=== PATIENT | male | born 1975 | race Caucasian/White ===

== ENCOUNTER → 2021-09-09 10:16 | Outpatient (REF) | payer MEDICAID, SELFPAY ==
--- NOTE | 2021-09-09 10:30 | CA_ITS ---
Transthoracic Echocardiogram Patient (Last, First, Middle): Lopez Perdue, Gender: Male Date of : 1975 Age: 46 Procedure Date: 09/09/2021 Procedure Type: Transthoracic Echocardiogram Location: [facility] Height: 167.64 cm Weight: 74.84 kg BSA: 1.84 m2 Heart Rate: bpm BP: 136 / 80 mmHg Latent Print Examiner: DILMA Referring MD: Adams Barrios MD Symptoms: HF I60.9 Study Quality: Good ECG Rhythm: Sinus Conclusions: - The left ventricular systolic function is normal. The calculated ejection fraction is 61% by biplane method. - LV peak global longitudinal strain -21.4% (normal). - There is mildly increased left ventricular wall thickness. - No obvious valvular pathology seen on this study. Findings Left Ventricle Normal left ventricular cavity size. There is mildly increased left ventricular wall thickness. The left ventricular systolic function is normal. The calculated ejection fraction is 61% by biplane method. There is no evidence of regional wall motion abnormalities. Diastolic function is normal for age. LV peak global longitudinal strain -21.4% (normal). Right Ventricle Normal right ventricular cavity size and systolic function. Atria Both atria are normal in size. Aortic Valve There is a normal trileaflet aortic valve. There is no aortic valve stenosis. There is trace (trivial) aortic valve regurgitation. Mitral Valve The mitral valve appears normal. There is trace mitral valve regurgitation. There is no mitral valve stenosis. Pulmonic Valve The pulmonic valve is likely normal. Tricuspid Valve There is trace tricuspid valve regurgitation. The pulmonary artery systolic pressure is normal. Great Vessels The sinuses of valsalva, sino tubular ridge, and asc aorta are normal in size. Venous The inferior vena cava is normal in size and collapses greater than 50% with inspiration. Pericardium/Pleural There is no evidence of pericardial effusion. Prior Study Comparison No prior study available for comparison. Recommendations, Care & Conclusions No obvious valvular pathology seen on this study. Measurements 2D Linear Measurements IVSd: 1.12 0.6-0.9/0.6-1.0 cm LVIDd: 4.66 3.9-5.3/4.2-5.9 cm LVIDd Index: 2.53 2.4-3.2/2.2-3.1 cm/m2 LVIDs: 3.23 2.0-3.6 cm LVPWd: 1.17 0.7-1.1 cm LA Diam: 3.70 2.7-3.8/3.0-4.0 cm LAIDs Index: 2.01 1.5-2.3 cm/m2 LV Mass: 243.89 67-162/88-224 g LV Mass Index: 132.55 43-95/49-115 g/m2 LVOT Diam: 2.20 3.0+(-)1.3 cm 2D Systolic Function EF 4C: 62.50 >55% EF 2C: 58.00 >55% EF BiP: 60.50 >55% Mitral Valve MV Pk E: 1.05 MV PK A: 0.99 MV Decel Time: 185.00 E/A: 1.10 E'Lateral: 9.68 E'Medial: 7.29 E/E' Med: 14.40 E/E' Lat: 10.80 PHT: 54.00 MVA PHT: 4.07 Decel Talbot: 5.66 Aortic Valve AoV Pk Jung: 1.61 AoV Mn Jung: 1.08 AoV VTI: 0.30 AoV Pk Grad: 10.00 Aov Mn Grad: 5.00 KENNETH Cont.VTI: 3.05 LVOT LVOT Pk Jung: 1.38 LVOT Mn Jung: 0.90 LVOT VTI: 0.24 LVOT Pk Grad: 8.00 LVOT Mn Grad: 4.00 LVOT Diam: 2.20 LVOT Area: 3.80 Diastolic Function MV Pk E: 1.05 MV Pk A: 0.99 E/A: 1.10 E'Medial: 7.29 E/E' Med: 14.40 E' Laterial: 9.68 E/E' Lat: 10.80 Right Ventricle TAPSE (mm): 19.90 TVS' Jung: 12.40 Tricuspid Valve TR Pk Jung: 2.02 TR Pk Grad: 16.00 RA Press: 3.00 RVSP: 19.00 Great Vessels Aorta Sinus of Valsalva: 3.67 2.0-3.[address] Ridge: 2.97 1.7-3.4 cm Ao Asc: 3.20 2.1-3.4 cm Ao Arch: 2.70 Updated in Other Vendor System with Status of Final Quincy Slade MD electronically signed on 09/11/2021 10:06:18 AM with status of Final
== END ==
LOC: HO.CARD 10:16
PROVIDERS: PCP Internal Medicine; Visit Provider Internal Medicine
DX: I50.9 Heart failure, unspecified (principal); I60.9 Nontraumatic subarachnoid hemorrhage, unspecified
CPT/HCPCS: 93306